=== PATIENT | male | born 1955 | race Caucasian/White ===

== ENCOUNTER 2016-11-02 20:35 | Inpatient (IN) | payer MEDICARE, MEDICAID ==
[~2016-11-02] VITALS: Ht 170.2 cm; Wt 74.4 kg
[~2016-11-02 20:35] MED LIST: ACET650T10 PO; ARIP30TA PO; ASPI-605 PO; BISA10SU8 RC; CALC-883 PO; CLON1TAB4 PO; DIVA500T7 PO; DOCU-270 PO; DOXA4TAB3 PO; FINA5TAB11 PO; FLUO40CA8 PO; LEVE250T2 PO; LEVO750T21 PO; LEVO88TA5 PO; MAGN400O6 PO; MULT1TAB11 PO; NA P133E RC; OXYB5TAB PO; PANT40TA4 PO; QUET200T PO; QUET400T PO
[2016-11-02] MEDS ORDERED: ONDANSETRON HCL/PF 4 MG/2 ML VIAL ONE (20:59)
[2016-11-02] MEDS ORDERED: CEFTRIAXONE 1GM BAG (ER ONLY) 50 ML IV ONE ×2 (20:59→21:00)
[2016-11-02] MEDS ORDERED: ONDANSETRON HCL/PF 4 MG/2 ML VIAL IVP ONE (21:00)
[2016-11-02] MEDS ORDERED: IV SET PRIMARY 1 EA INFUS.SET MC ONE (21:00)
[2016-11-02] MEDS ORDERED: IV NS 0.9% 1,000 ML BAG IV ONE (21:00)
[2016-11-02] MEDS ORDERED: IV NS 0.9% 1,000 ML ONE (21:00)
--- NOTE | 2016-11-02 21:00 | NUR ---
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 pt is alert x 2, c/o cough congestion x 3 day . pt states he was at his urgent care earlier today, dc with uti care instrucitons and rx for rocephin. pt states he was unable to fill the scrip due to insurance reasons. pt gowned, palced on threat monitoring analyst, skin warm and dry, rr even and unlabored. pt is tachycardic in the 110's, hypxic. admin 4lpm nc. awaiting orders from [facility], will continue to monitor
--- NOTE | 2016-11-02 21:01 | NUR ---
RAC #[id number] IV ACCESS. BLOOD SAMPLE COLLECTED SENT TO LAB
--- NOTE | 2016-11-02 21:17 | NUR ---
medicated pt as ordered
[2016-11-02 21:31] LABS: BASOPHILS # (AUTO) 0.1 /CMM (0.0-0.2); BASOPHILS % (AUTO) 1.3 % (0.0-2.0); EOSINOPHILS # (AUTO) 0.1 /CMM (0.0-0.7); EOSINOPHILS % (AUTO) 1.4 % (0.0-6.0); HEMATOCRIT 43 % (39-51); HEMOGLOBIN 14.1 g/dL (13.5-17.5); LYMPHOCYTES # (AUTO) 1.5 /CMM (0.8-4.8); LYMPHOCYTES % (AUTO) 15.1 % (20.0-44.0); MEAN CORPUSCULAR HEMOGLOBIN 30 PG (26.0-33.0); MEAN CORPUSCULAR HGB CONC 33 g/dl (31.0-36.0); MEAN CORPUSCULAR VOLUME 93 fL (80-96); MONOCYTES # (AUTO) 1.6 /CMM (0.1-1.30); MONOCYTES % (AUTO) 15.8 % (2.0-12.0); NEUTROPHILS # (AUTO) 6.7 /CMM (1.8-8.9); NEUTROPHILS % (AUTO) 66.4 % (43.0-81.0); PLATELET COUNT (AUTO) 79 /CMM (150-450); RDW COEFFICIENT OF VARIATION 15.9 (11.5-15.0); RED BLOOD CELL COUNT(AUTO) 4.68 MIL/uL (4.5-6.0)
[2016-11-02] MEDS ORDERED: SECONDARY IV SET 1 EA INFUS.SET MC ONE (21:41)
[2016-11-02 21:45] LABS: INR 1.14 (0.87-1.13)
[2016-11-02 21:47] LABS: CALCIUM, SERUM 8.6 mg/dL (8.5-10.1); CARBON DIOXIDE 30 mmol/L (21-32); CHLORIDE 108 mmol/L (98-107); CREATININE 1.4 mg/dL (0.6-1.3); GLUCOSE 103 mg/dL (74-106); SODIUM SERUM 142 mmol/L (136-145); UREA NITROGEN, BLOOD 30 mg/dL (7-18)
[2016-11-02 21:48] LABS: TROPONIN I < 0.017 ng/mL (0.00-0.056)
[2016-11-02 21:59] LABS: ALANINE AMINOTRANSFERASE 8 U/L (12-78); ALBUMIN 2.4 g/dL (3.4-5.0); ALKALINE PHOSPHATASE 87 U/L (46-116); ASPARTATE AMINOTRANSFERASE 23 U/L (15-37); B-TYPE NATRIURETIC PEPTIDE 45 PG/ML (0-125); BILIRUBIN,DIRECT 0.1 mg/dL (0.0-0.2); BILIRUBIN,TOTAL 0.2 mg/dL (0.2-1.0); TOTAL PROTEIN, SERUM 6.5 g/dL (6.4-8.2)
[2016-11-02] MEDS ORDERED: AZITHROMYCIN 500 MG in IV D5W 250 ML IV ONE (22:00)
[2016-11-02] MEDS ORDERED: FUROSEMIDE 40 MG/4 ML VIAL IV ONE (22:00)
[2016-11-02] MEDS ORDERED: IV SET PRIMARY PUMP SET 1 EA INFUS.SET MC ONE (22:04)
[2016-11-02] MEDS ORDERED: AZITHROMYCIN 500 MG VIAL ONE (22:04)
[2016-11-02] MEDS ORDERED: IV D5W 250 ML IV ONE ×2 (22:04→22:06)
[2016-11-02] MEDS ORDERED: FUROSEMIDE 20 MG/2 ML VIAL ONE (22:04)
[2016-11-02] MEDS ORDERED: FUROSEMIDE 40 MG/4 ML VIAL ONE (22:04)
[2016-11-02 22:11] LABS: APPEARANCE,URINE SL CLOUDY (CLEAR); BILIRUBIN,URINE NEGATIVE (NEGATIVE); BLOOD, URINE TRACE-INTA Ery/uL (NEGATIVE); COLOR,URINE YELLOW (YELLOW); KETONES,URINE NEGATIVE (NEGATIVE); LEUKOCYTE ESTERASE ,URINE 2+ (NEGATIVE); NITRITE, URINE POSITIVE (NEGATIVE); PH,URINE 5.5 (5.0-8.0); PROTEIN,URINE NEGATIVE (NEGATIVE); UGLUCOSE NEGATIVE (NEGATIVE); UROBILINOGEN,URINE 0.2 EU/dL (0.2)
[2016-11-02] MEDS ORDERED: Z GUARD REMEDY 2 OZ OINT TP PRN (22:30)
[2016-11-02] MEDS ORDERED: MAG HYDROX/AL HYDROX/SIMETH 30 ML UDC PO PRN (22:30)
[2016-11-02] MEDS ORDERED: BISACODYL SUPP (10 MG) 10 MG/SUPP.RECT SUPP.RECT RC PRN (22:30)
[2016-11-02] MEDS ORDERED: MAGNESIUM HYDROXIDE 30 ML UDC PO PRN (22:30)
[2016-11-02] MEDS ORDERED: LEVOFLOXACIN 500 MG /D5W 100ML 500 MG in PREMIX 1 EA IV SCH (22:30)
[2016-11-02] MEDS ORDERED: HYDROCODONE/APAP 5/325MG 1 EACH TABLET PO PRN (22:30)
[2016-11-02] MEDS ORDERED: ONDANSETRON HCL/PF 4 MG/2 ML VIAL IVP PRN (22:30)
[2016-11-02] MEDS ORDERED: ACETAMINOPHEN 325 MG TABLET PO PRN (22:30)
[2016-11-02] MEDS ORDERED: ZOLPIDEM TARTRATE 5 MG TABLET PO PRN (22:30)
--- NOTE | 2016-11-02 22:30 | NUR ---
tele/rn opening notes received patient new admitted arrived on a gurney from ER with caregiver. with dx of pneumonia. came to hospital due to newly dx uti from urgent care.w/ nv/. with htn hld, autism, bph. alert x2. w/ mild distress. tele at st 110. noted rednedd on buttocks . will endorse to am rn
[2016-11-02 22:32] LABS: BACTERIA,URINE 1+ /HPF (None Seen); SQUAMOUS EPITHELIAL CELL,UR Rare /HPF (None Seen); WBC,URINE 21-50 /HPF (0-3)
[2016-11-02] MEDS ORDERED: DOXAZOSIN MESYLATE (4 MG) 4 MG TABLET ONE (23:29)
[2016-11-02] MEDS ORDERED: DOCUSATE SODIUM 100 MG CAPSULE PO ONE (23:30)
[2016-11-02] MEDS ORDERED: OXYBUTYNIN CHLORIDE 5 MG TABLET ONE (23:31)
[2016-11-02] MEDS ORDERED: DIVALPROEX SODIUM 500 MG TABLET.DR PO ONE (23:31)
[2016-11-02] MEDS ORDERED: LEVETIRACETAM (250 MG) 250 MG TABLET PO ONE (23:32)
[2016-11-02] MEDS: DOCUSATE SODIUM 100 MG CAPSULE PO SCH (23:40)
[2016-11-02] MEDS: DIVALPROEX SODIUM 500 MG TABLET.DR PO SCH (23:41)
[2016-11-02] MEDS: DOXAZOSIN MESYLATE (4 MG) 4 MG TABLET PO SCH (23:41)
[2016-11-02] MEDS ORDERED: LEVOFLOXACIN 500 MG /D5W 100ML 100 ML IV ONE (23:42)
[2016-11-02] MEDS: LEVETIRACETAM (250 MG) 250 MG TABLET PO SCH (23:42)
[2016-11-02 23:43] VITALS: BP 121/96
[2016-11-03] VITALS (8 sets, daily range): BP systolic 91–108; BP diastolic 67–74
[2016-11-03] MEDS ORDERED: IV SET PRIMARY PUMP SET 1 EA INFUS.SET MC ONE (00:29)
[2016-11-03] MEDS ORDERED: SECONDARY IV SET 1 EA INFUS.SET MC ONE ×2 (00:32→12:11)
[2016-11-03] MEDS ORDERED: IV NS 0.9% 1,000 ML ONE (00:32)
[2016-11-03] MEDS: IV NS 0.9% 1,000 ML IV PRN ×2 (00:38→18:26)
[2016-11-03 07:31] LABS: BASOPHILS % (AUTO) 0.3 % (0.0-2.0); EOSINOPHILS # (AUTO) 0.2 /CMM (0.0-0.7); EOSINOPHILS % (AUTO) 1.8 % (0.0-6.0); HEMATOCRIT 40 % (39-51); HEMOGLOBIN 13.5 g/dL (13.5-17.5); LYMPHOCYTES # (AUTO) 2.2 /CMM (0.8-4.8); MEAN CORPUSCULAR HEMOGLOBIN 31 PG (26.0-33.0); MEAN CORPUSCULAR HGB CONC 34 g/dl (31.0-36.0); MEAN CORPUSCULAR VOLUME 91 fL (80-96); MONOCYTES # (AUTO) 1.5 /CMM (0.1-1.30); NEUTROPHILS # (AUTO) 6.1 /CMM (1.8-8.9); NEUTROPHILS % (AUTO) 60.9 % (43.0-81.0); PLATELET COUNT (AUTO) 99 /CMM (150-450); RDW COEFFICIENT OF VARIATION 16.4 (11.5-15.0); RED BLOOD CELL COUNT(AUTO) 4.39 MIL/uL (4.5-6.0)
[2016-11-03 07:52] LABS: CALCIUM, SERUM 8.8 mg/dL (8.5-10.1); CREATININE 1.3 mg/dL (0.6-1.3); MAGNESIUM 1.7 mg/dL (1.8-2.4); PHOSPHORUS 4.1 mg/dL (2.5-4.9); POTASSIUM 4.2 mmol/L (3.5-5.1)
--- NOTE | 2016-11-03 08:00 | NUR ---
tele health care coach: initial assessment received pt in bed awake, a/ox2, speech garble due to autism. pt able to make simple needs known. private caregiver at bedside. reality orientation provided prn. no c/o pain or any discomfort. instructed to call for assistance. will continue to monitor.
[2016-11-03] MEDS: FLUOXETINE HCL 20 MG CAPSULE PO SCH (09:13)
[2016-11-03] MEDS: LEVETIRACETAM (250 MG) 250 MG TABLET PO SCH ×2 (09:13→17:07)
[2016-11-03] MEDS: LEVOTHYROXINE SODIUM 88 MCG TABLET PO SCH (09:14)
[2016-11-03] MEDS: ARIPIPRAZOLE 5 MG TABLET PO SCH (09:14)
[2016-11-03] MEDS: DOCUSATE SODIUM 100 MG CAPSULE PO SCH ×2 (09:14→17:08)
[2016-11-03] MEDS: clonazePAM 1 MG TABLET PO SCH ×3 (09:14→17:08)
[2016-11-03] MEDS: ASPIRIN EC 81 MG TABLET.DR PO SCH (09:14)
[2016-11-03] MEDS: OXYBUTYNIN CHLORIDE ER 5 MG TAB PO SCH (09:15)
[2016-11-03] MEDS: PANTOPRAZOLE 40 MG TABLET.DR PO SCH (09:15)
[2016-11-03] MEDS: DIVALPROEX SODIUM 500 MG TABLET.DR PO SCH ×3 (09:17→17:08)
--- NOTE | 2016-11-03 10:00 | NUR ---
tele sap ppm consultant: notes resting comfortable in bed with no distress noted. will continue to monitor.
[2016-11-03 10:29] LABS: BAND % (MANUAL) 3 % (0.0-5.0); EOSINOPHILS % (MANUAL) 3 % (0-4); LYMPHOCYTES % (MANUAL) 25 % (16-48); MONOCYTES % (MANUAL) 14 % (0-11.0); NEUTROPHILS % (MANUAL) 55 (42-76)
[2016-11-03] MEDS: QUETIAPINE FUMARATE 100 MG TABLET PO SCH ×3 (11:07→21:11)
--- NOTE | 2016-11-03 12:00 | NUR ---
tele chainsaw mechanic: notes lunch served. hob elevated. pt has good appetite. needs attended. will continue to monitor.
[2016-11-03] MEDS: Magnesium 1GM/D5W 100ML PREMIX 100 ML IV SCH ×3 (13:00→13:59)
--- NOTE | 2016-11-03 14:00 | NUR ---
tele general maintenance engineer: md visit seen and examined by dr. sheppard.
--- NOTE | 2016-11-03 17:15 | NUR ---
tele store keeper: notes dinner served. hob elevated. private caregiver assisting with meal. instructed to call for assistance. will monitor.
--- NOTE | 2016-11-03 18:37 | NUR ---
tele software development leader: notes in bed sounds asleep. caregiver remains at bedside. needs attended. tele sr=89. will continue to monitor.
--- NOTE | 2016-11-03 19:30 | NUR ---
TELERN OPENS EYES OCCASSIONALLY, CAREGIVER AT BEDSIDE. COUGHS PRODUCTIVELY AT TIMES, NO RESP DISTRESS. 02 AT 2 LITERS VIA NC MAINTAINED. CAREGIVER SUGGESTING PUREE DIET, STATED PATIENT POCKETING SOLID FOOD. WILL FOLLW UP IN AM.
[2016-11-03] MEDS: DOXAZOSIN MESYLATE (4 MG) 4 MG TABLET PO SCH (21:09)
--- NOTE | 2016-11-03 21:10 | NUR ---
LESTER AGUILAR HELD BP 99/67. OTHER DUE MEDS ADMIISTERED CRUSHED GIVEN WITH APPLE SAUCE. ASPIRATION PRECAUTIONS OBSERVED. INCONTINENT, KEPT DRY CLEAN AND COMFORTABLE.
[2016-11-03] MEDS: FINASTERIDE (5 MG) 5 MG TABLET PO SCH (21:11)
[2016-11-04] VITALS: BP 104/74
--- NOTE | 2016-11-04 00:05 | NUR ---
TELERN SLEPT GOOD, APPEARS COMFORTABLE.
[2016-11-04 04:00] VITALS: BP 111/76
--- NOTE | 2016-11-04 04:15 | NUR ---
TELERN AM CARE STARTED, SCREAMS DURING CARE. LARGE URINE OUTPUT, DIAPERED. PRESENT IVF INFUSING WELL.
[2016-11-04] MEDS: IV NS 0.9% 1,000 ML IV PRN (05:26)
--- NOTE | 2016-11-04 06:53 | NUR ---
TELERN CAREGIVER AT BEDSIDE, YELLING AT TIME, WANTED TO LEAVE. REMAINS CONFUSED, PRESENT IVF INFUSING WELL.
[2016-11-04 07:00] VITALS: BP 108/67
[2016-11-04 07:34] LABS: CALCIUM, SERUM 8.9 mg/dL (8.5-10.1); CREATININE 1.1 mg/dL (0.6-1.3); MAGNESIUM 1.9 mg/dL (1.8-2.4); POTASSIUM 4.1 mmol/L (3.5-5.1)
--- NOTE | 2016-11-04 08:00 | NUR ---
tele window repairer: initial assessment received pt in bed awake, a/ox2, speech garble. pt able to make simple needs known. private caregiver at bedside. reality orientation provided prn. no c/o pain or any discomfort. instructed to call for assistance. tele st= 110. will continue to monitor.
[2016-11-04] MEDS: ARIPIPRAZOLE 5 MG TABLET PO SCH (08:56)
[2016-11-04] MEDS: DIVALPROEX SODIUM 500 MG TABLET.DR PO SCH ×3 (08:56→17:29)
[2016-11-04] MEDS: FLUOXETINE HCL 20 MG CAPSULE PO SCH (08:56)
[2016-11-04] MEDS: LEVETIRACETAM (250 MG) 250 MG TABLET PO SCH ×2 (08:56→17:29)
[2016-11-04] MEDS: ASPIRIN EC 81 MG TABLET.DR PO SCH (08:56)
[2016-11-04] MEDS: PANTOPRAZOLE 40 MG TABLET.DR PO SCH (08:56)
[2016-11-04] MEDS: clonazePAM 1 MG TABLET PO SCH ×3 (08:56→17:29)
[2016-11-04] MEDS: DOCUSATE SODIUM 100 MG CAPSULE PO SCH ×2 (08:56→17:28)
[2016-11-04] MEDS: LEVOTHYROXINE SODIUM 88 MCG TABLET PO SCH (08:57)
[2016-11-04] MEDS: OXYBUTYNIN CHLORIDE ER 5 MG TAB PO SCH (08:57)
[2016-11-04] MEDS: QUETIAPINE FUMARATE 100 MG TABLET PO SCH ×3 (08:58→22:03)
--- NOTE | 2016-11-04 11:10 | NUR ---
m/s assistant associate professor: md visit seen and examined by carina (acnp) at this time and informed him that pt doesn't have any antibiotic orders. ancp will review his chart as stated.
[2016-11-04] MEDS ORDERED: CEFTRIAXONE 1 G VIAL IM SCH (12:30)
[2016-11-04] MEDS ORDERED: CEFTRIAXONE 1 G VIAL IV SCH (12:30)
[2016-11-04] MEDS: IV 1/2NS 1000 ML 1,000 ML IV PRN (12:47)
[2016-11-04] MEDS: CEFTRIAXONE 1 G in IV D5W 50 ML IV SCH (13:51)
[2016-11-04] MEDS ORDERED: SECONDARY IV SET 1 EA INFUS.SET MC ONE (14:21)
--- NOTE | 2016-11-04 14:25 | NUR ---
m/s plastic molding operator: notes rocephin 1gm ivpb completed without a/r noted. caregiver remains at bedside. will continue to monitor.
[2016-11-04] MEDS: AZITHROMYCIN 500 MG in IV D5W 250 ML IV SCH (14:27)
[2016-11-04 15:58] VITALS: BP 115/82
--- NOTE | 2016-11-04 18:20 | NUR ---
m/s board certified behavioral analyst: notes resting comfortable in bed with caregiver at bedside. needs attended. no acute distress noted. call light within reach. ivf of 1/2 ns at 75ml/hr infusing well. no s/s of infiltration. will continue to monitor.
--- NOTE | 2016-11-04 19:30 | NUR ---
MS/RN NOTES PT RESTING IN BED, OPENS EYES. CAREGIVER AT BEDSIDE. ON 2LPM O2 VIA NC, BREATHING EVEN AND UNLABORED, COUGH NOTED. NO S/S OF DISTRESS. IV TO RFA RUNNING IVF ORDERED. NO S/S OF INFILTRATION NOTED. BED IN LOW/LOCKED POSITION WITH CALL LIGHT IN REACH, BED RAILS UPX2 AND BED ALARM ON. WILL CONTINUE TO MONITOR
[2016-11-04 20:00] VITALS: BP 121/78
[2016-11-04] MEDS: DOXAZOSIN MESYLATE (4 MG) 4 MG TABLET PO SCH (22:03)
[2016-11-04] MEDS: FINASTERIDE (5 MG) 5 MG TABLET PO SCH (22:03)
[2016-11-05] MEDS: IV 1/2NS 1000 ML 1,000 ML IV PRN ×2 (04:20→21:01)
--- NOTE | 2016-11-05 07:15 | NUR ---
RN OPEN NOTES RECEIVED REPORT FROM MANAGER SUBWAY NURSE. PATIENT IS IN BED WITH HIS EYES CLOSED. AROUSE TO NAME AND TOUCH. CHENILLE MACHINE OPERATOR AT BEDSIDE. NO SIGNS AND SYMPTOMS OF DISTRESS. BED IN LOW POSITION, LOCKED AND TWO SIDE RAILS ARE UP. WILL CONTINUE TO MONITOR AND ASSESS PATIENT'S CONDITION THROUGHOUT MY SHIFT
[2016-11-05 07:18] LABS: BASOPHILS % (AUTO) 0.3 % (0.0-2.0); EOSINOPHILS # (AUTO) 0.2 /CMM (0.0-0.7); EOSINOPHILS % (AUTO) 3.2 % (0.0-6.0); HEMATOCRIT 39 % (39-51); LYMPHOCYTES % (AUTO) 27.1 % (20.0-44.0); MEAN CORPUSCULAR HEMOGLOBIN 30 PG (26.0-33.0); MEAN CORPUSCULAR HGB CONC 33 g/dl (31.0-36.0); MEAN CORPUSCULAR VOLUME 92 fL (80-96); MONOCYTES % (AUTO) 14.1 % (2.0-12.0); NEUTROPHILS % (AUTO) 55.3 % (43.0-81.0); PLATELET COUNT (AUTO) 79 /CMM (150-450); RDW COEFFICIENT OF VARIATION 16.5 (11.5-15.0); RED BLOOD CELL COUNT(AUTO) 4.28 MIL/uL (4.5-6.0); WHITE BLOOD COUNT (AUTO) 7.2 K/uL (4.3-11.0)
--- NOTE | 2016-11-05 07:23 | NUR ---
MS/RN NOTES PT ASLEEP, AROUSABLE. ON 3LPM 02 VIA NC, BREATHING EVEN AND UNLABORED. NO S/S OF DISTRESS NOTED. CAREGIVER AT BEDSIDE. IV TO RFA PATENT AND INTACT RUNNING IVF ORDERED. ALL NEEDS MET AND ATTENDED. MADE PT COMFORTABLE THROUGHOUT SHIFT. TURNED AND REPOSITIONED Q2H, EXTREMITIES OFFLOADED. BED IN LOW/LOCKED POSITION WITH CALL LIGHT IN REACH. BED RAILS UPX2. ENDORSED TO AM SHIFT BUDDY.
[2016-11-05 07:42] LABS: CALCIUM, SERUM 8.9 mg/dL (8.5-10.1); MAGNESIUM 1.6 mg/dL (1.8-2.4); POTASSIUM 4.1 mmol/L (3.5-5.1)
[2016-11-05 08:00] VITALS: BP 117/87
[2016-11-05 08:15] LABS: EOSINOPHILS % (MANUAL) 1 % (0-4); LYMPHOCYTES % (MANUAL) 21 % (16-48); MONOCYTES % (MANUAL) 6 % (0-11.0); NEUTROPHILS % (MANUAL) 72 (42-76)
[2016-11-05] MEDS: OXYBUTYNIN CHLORIDE ER 5 MG TAB PO SCH (08:46)
[2016-11-05] MEDS: ARIPIPRAZOLE 5 MG TABLET PO SCH (08:46)
[2016-11-05] MEDS: DOCUSATE SODIUM 100 MG CAPSULE PO SCH ×2 (08:47→17:36)
[2016-11-05] MEDS: ASPIRIN EC 81 MG TABLET.DR PO SCH (08:48)
[2016-11-05] MEDS: FLUOXETINE HCL 20 MG CAPSULE PO SCH (08:48)
[2016-11-05] MEDS: LEVETIRACETAM (250 MG) 250 MG TABLET PO SCH ×2 (08:48→17:36)
[2016-11-05] MEDS: clonazePAM 1 MG TABLET PO SCH ×3 (08:48→17:36)
[2016-11-05] MEDS: QUETIAPINE FUMARATE 100 MG TABLET PO SCH ×3 (08:49→21:01)
[2016-11-05] MEDS: LEVOTHYROXINE SODIUM 88 MCG TABLET PO SCH (08:49)
[2016-11-05] MEDS: PANTOPRAZOLE 40 MG TABLET.DR PO SCH (08:49)
[2016-11-05] MEDS: DIVALPROEX SODIUM 500 MG TABLET.DR PO SCH (08:50)
[2016-11-05] MEDS: VALPROIC ACID 250 MG/5 ML UDC GT SCH ×3 (09:54→17:36)
[2016-11-05] MEDS ORDERED: SECONDARY IV SET 1 EA INFUS.SET MC ONE (12:04)
[2016-11-05] MEDS: Magnesium 1GM/D5W 100ML PREMIX 100 ML IV SCH ×2 (12:23→13:31)
[2016-11-05] MEDS: AZITHROMYCIN 500 MG in IV D5W 250 ML IV SCH (14:28)
[2016-11-05] MEDS: CEFTRIAXONE 1 G in IV D5W 50 ML IV SCH (15:36)
[2016-11-05 16:00] VITALS: BP 108/74
--- NOTE | 2016-11-05 18:45 | NUR ---
RN CLOSING NOTES PATIENT IS IN BED. ALERT AND ORIENTED TO NAME ONLY. PIPE MAKER AT BEDSIDE. NO SIGNS AND SYMPTOMS OF DISTRESS. BED IN LOW POSITION, LOCKED AND TWO SIDE RAILS ARE UP. IV SITE IS INTACT AND PATENT, CURRENTLY RUNNING 0.45% NA AT 75 ML/HR. ALL NEEDS ANTICIPATED. PATIENT KEPT CLEAN AND DRY. WILL ENDORSE TO TOOLING INSPECTOR NURSE
--- NOTE | 2016-11-05 19:45 | NUR ---
MS RN OPEN NOTES PATIENT IS IN BED WITH HIS EYES CLOSED. AROUSE TO NAME AND TOUCH. POLICEMAN AT BEDSIDE. NO SIGNS AND SYMPTOMS OF DISTRESS, NO SOB. ON 3L NC. BED IN LOW POSITION, LOCKED AND TWO SIDE RAILS ARE UP. WILL CONTINUE TO MONITOR PT
[2016-11-05 20:00] VITALS: BP 96/70
[2016-11-05] MEDS ORDERED: IV SET PRIMARY PUMP SET 1 EA INFUS.SET MC ONE (20:43)
[2016-11-05] MEDS: FINASTERIDE (5 MG) 5 MG TABLET PO SCH (21:01)
[2016-11-05] MEDS: DOXAZOSIN MESYLATE (4 MG) 4 MG TABLET PO SCH (21:01)
--- NOTE | 2016-11-06 06:27 | NUR ---
NUCLEAR OFFICER CLOSING NOTES PATIENT IS IN BED. ALERT AND ORIENTED X1-2, COMMUNICATES BETTER WITH YES OR NO QUESTIONS. INTERACTIVE MEDIA DESIGNER AT BEDSIDE THICKENER FOR LIQUIDS WAS GIVEN TO USE WITH PT. NO SIGNS AND SYMPTOMS OF DISTRESS. BED IN LOW POSITION, LOCKED AND TWO SIDE RAILS ARE UP. IV SITE IS INTACT AND PATENT, CURRENTLY RUNNING 0.45% NA AT 75 ML/HR. ALL NEEDS ANTICIPATED. PATIENT KEPT CLEAN AND DRY. WILL ENDORSE TO DAY SHIFT.
[2016-11-06 06:46] LABS: BASOPHILS % (AUTO) 0.3 % (0.0-2.0); EOSINOPHILS # (AUTO) 0.2 /CMM (0.0-0.7); EOSINOPHILS % (AUTO) 1.9 % (0.0-6.0); HEMATOCRIT 41 % (39-51); HEMOGLOBIN 13.7 g/dL (13.5-17.5); LYMPHOCYTES # (AUTO) 1.8 /CMM (0.8-4.8); LYMPHOCYTES % (AUTO) 20.2 % (20.0-44.0); MEAN CORPUSCULAR HEMOGLOBIN 31 PG (26.0-33.0); MEAN CORPUSCULAR HGB CONC 33 g/dl (31.0-36.0); MEAN CORPUSCULAR VOLUME 92 fL (80-96); MONOCYTES # (AUTO) 1.4 /CMM (0.1-1.30); NEUTROPHILS # (AUTO) 5.4 /CMM (1.8-8.9); NEUTROPHILS % (AUTO) 61.6 % (43.0-81.0); PLATELET COUNT (AUTO) 88 /CMM (150-450); RDW COEFFICIENT OF VARIATION 16.5 (11.5-15.0); WHITE BLOOD COUNT (AUTO) 8.8 K/uL (4.3-11.0)
[2016-11-06 06:58] LABS: CALCIUM, SERUM 8.8 mg/dL (8.5-10.1); CREATININE 1.1 mg/dL (0.6-1.3); MAGNESIUM 1.7 mg/dL (1.8-2.4); POTASSIUM 4.3 mmol/L (3.5-5.1)
--- NOTE | 2016-11-06 07:49 | NUR ---
RN MS NOTES RECEIVED PATIENT IN BED, WIT SITTER AT BED SIDE. NO APPARENT DISTRESS NOTED, NO FACIAL GRIMACING NOTED. IV LINE ON RFA PATENT INFUSING 1/2NS AT 75ML/HR. ALL NEEDS MET, KEPT CLEAN AND DRY, CALL LIGHT WITHIN REACH.
[2016-11-06 08:00] VITALS: BP 105/79
[2016-11-06 08:06] LABS: BAND % (MANUAL) 3 % (0.0-5.0); EOSINOPHILS % (MANUAL) 2 % (0-4); LYMPHOCYTES % (MANUAL) 21 % (16-48); MONOCYTES % (MANUAL) 9 % (0-11.0); NEUTROPHILS % (MANUAL) 65 (42-76)
[2016-11-06] MEDS: ASPIRIN EC 81 MG TABLET.DR PO SCH (08:55)
[2016-11-06] MEDS: DOCUSATE SODIUM 100 MG CAPSULE PO SCH ×2 (08:55→16:23)
[2016-11-06] MEDS: LEVETIRACETAM (250 MG) 250 MG TABLET PO SCH ×2 (08:56→16:23)
[2016-11-06] MEDS: QUETIAPINE FUMARATE 100 MG TABLET PO SCH (08:56)
[2016-11-06] MEDS: OXYBUTYNIN CHLORIDE ER 5 MG TAB PO SCH (08:57)
[2016-11-06] MEDS: ARIPIPRAZOLE 5 MG TABLET PO SCH (08:57)
[2016-11-06] MEDS: FLUOXETINE HCL 20 MG CAPSULE PO SCH (08:57)
[2016-11-06] MEDS: PANTOPRAZOLE 40 MG TABLET.DR PO SCH (08:57)
[2016-11-06] MEDS: LEVOTHYROXINE SODIUM 88 MCG TABLET PO SCH (08:57)
[2016-11-06] MEDS: clonazePAM 1 MG TABLET PO SCH ×2 (08:59→12:41)
[2016-11-06] MEDS: VALPROIC ACID 250 MG/5 ML UDC GT SCH ×3 (09:15→16:23)
[2016-11-06] MEDS ORDERED: FEE PK DOSING 1 MIN EA MC ONE (09:56)
[2016-11-06] MEDS: IV 1/2NS 1000 ML 1,000 ML IV PRN (10:40)
[2016-11-06] MEDS ORDERED: SECONDARY IV SET 1 EA INFUS.SET MC ONE ×2 (11:20→12:42)
[2016-11-06] MEDS: Magnesium 1GM/D5W 100ML PREMIX 100 ML IV SCH ×2 (11:26→13:56)
[2016-11-06] MEDS: VANCOMYCIN 0.75 GM in IV D5W 250 ML IV SCH ×2 (12:44→19:43)
[2016-11-06] MEDS ORDERED: clonazePAM 1 MG TABLET PO PRN (13:00)
--- NOTE | 2016-11-06 13:00 | NUR ---
RN MS NOTES CALLED JORDY PART TIME TO INFORM HIM OF DESATURATION AND LETHARGY. RECEIVED NEW TELEPHONE ORDERS, NOTED AND CARRIED OUT.
--- NOTE | 2016-11-06 13:29 | NUR ---
RN MS NOTES 1300 MEDICATIONS HELD DUE TO PATIENT BEING LETHARGIC.
[2016-11-06 13:41] LABS: ABG BASE EXCESS 5.6 mmol/L; ABG OXYGEN SATURATION 98.1 % (92.0-98.5); ABG PCO2 47.1 mmHg (35.0-45.0); ABG PH 7.434 (7.350-7.450); ABG PO2 152.5 mmHg (75.0-100.0); AaDO2 368.5 mmHg; COHb 0.5 % (0.5-1.5); MetHb 0.2 % (0.0-1.5); O2Hb 97.4 % (94.0-97.0); SITE, ABG Right Radial; VENT MODE, BG 15 LPM VIA NRB
[2016-11-06] MEDS: CEFTRIAXONE 1 G in IV D5W 50 ML IV SCH (15:24)
[2016-11-06 16:00] VITALS: BP 102/75
--- NOTE | 2016-11-06 19:20 | NUR ---
RN MS CLOSING NOTES PATIENT IN BED, IN NO APPARENT DISTRESS, NO FACIAL GRIMACING NOTED. IV LINE ON RFA DISCONTINUE DUE TO INFILTRATION, SWELLING NOTED ON RIGHT ARM. NEW IV LINE STARTED ON LEFT WRIST WITH GOOD BLOOD RETURN. ON 5L O2 VIA MASK SATURATING AT 98%. ALL DUE MEDS GIVEN, ALL NEEDS MET, KEPT CLEAN AND DRY. WILL ENDORSE CARE TO PM SHIFT.
--- NOTE | 2016-11-06 19:40 | NUR ---
MS/ANALYSIS LEAD; RECEIVED PT IN BED SLEEPING / AROUSABLE. WITH O2 5L VIA MASH ON. HL ON LWA IVF RESUMED BY THE RN AND HE HANGED VANCOMYCIN AT THIS TIME. PT SAT 95 % on o2 5L VIA MASH, HR 92. BED ON LOWER POSITION AND LOCKED FOR SAFETY. SIDE RAILS ARE UP FOR SAFETY. CONTINUE TO MONITOR. CALL LIGHT WITHIN REACH.
[2016-11-06 20:00] VITALS: BP 102/75
--- NOTE | 2016-11-06 20:20 | NUR ---
MS/LIQUEFIED PETROLEUM GASFITTER; PT RE CHECKED WITH FEMALE INSPECTOR BRAKE LINING AT THIS TIME. .
[2016-11-06] MEDS: DOXAZOSIN MESYLATE (4 MG) 4 MG TABLET PO SCH (22:00)
[2016-11-06] MEDS: FINASTERIDE (5 MG) 5 MG TABLET PO SCH (22:08)
--- NOTE | 2016-11-07 02:00 | NUR ---
MS/FACILITIES ADMINISTRATOR; SLEEPING. COUGHING STILL NOTED.
[2016-11-07] MEDS: VANCOMYCIN 0.75 GM in IV D5W 250 ML IV SCH ×3 (02:44→20:34)
--- NOTE | 2016-11-07 06:24 | NUR ---
MS/TRAY DELIVERY AIDE; SLEPT FAIRLY. COUGHING STILL NOTED. REMAINED O2 5L VIA MASK. HAS BEEN SATURATING FINE. CONTINUE TO MONITOR. IVF ON PROGRESS. INCONTINENT OF URINE. AM CARE DONE BY THE BUNCH MAKER HAND. HAS BEEN TURNED AND REPOSITIONED TO SIDES WITH PILLOWS TO HIS BACK, BOTH LOWER LEGS . RT ARM WITH SWELLING AND ELEVATED WITH PILLOW ALSO. CONTINUE TO MONITOR. WILL ENDORSE TO THE DAY SHIFT NURSE.
--- NOTE | 2016-11-07 06:45 | NUR ---
MS/EMPLOYEE SERVICE OFFICER; WT. 164.9 BY BED SCALE.
[2016-11-07 07:23] LABS: CALCIUM, SERUM 8.9 mg/dL (8.5-10.1); CREATININE 0.9 mg/dL (0.6-1.3); MAGNESIUM 1.6 mg/dL (1.8-2.4)
--- NOTE | 2016-11-07 07:26 | NUR ---
RN MS NOTES RECEIVED PATIENT IN BED, IN NO APPARENT DISTRESS, NO SOB NOTED, NO FACIAL GRIMACING NOTED. ON 5 L O2 VIA MASK SATURATING AT 98%. IV LINE ON LEFT WRIST PATENT, INFUSING 1/2 NS AT 75ML/HR. ALL NEEDS MET, KEPT CLEAN AND DRY.
[2016-11-07 08:00] VITALS: BP 109/75
[2016-11-07] MEDS: ARIPIPRAZOLE 5 MG TABLET PO SCH (09:12)
[2016-11-07] MEDS: LEVOTHYROXINE SODIUM 88 MCG TABLET PO SCH (09:12)
[2016-11-07] MEDS: PANTOPRAZOLE 40 MG TABLET.DR PO SCH (09:12)
[2016-11-07] MEDS: VALPROIC ACID 250 MG/5 ML UDC GT SCH ×3 (09:12→16:03)
[2016-11-07] MEDS: OXYBUTYNIN CHLORIDE ER 5 MG TAB PO SCH (09:13)
[2016-11-07] MEDS: ASPIRIN EC 81 MG TABLET.DR PO SCH (09:13)
[2016-11-07] MEDS: FLUOXETINE HCL 20 MG CAPSULE PO SCH (09:13)
[2016-11-07] MEDS: DOCUSATE SODIUM 100 MG CAPSULE PO SCH ×2 (09:13→16:03)
[2016-11-07] MEDS: LEVETIRACETAM (250 MG) 250 MG TABLET PO SCH ×2 (09:13→16:03)
--- NOTE | 2016-11-07 10:55 | NUR ---
RN MS GONZALES CALLED [facility] TO OBTAIN CONSENT FOR CT, PER CASSY SHE IS A MEETING WILL CALL BACK. ALSO CALLED KALYN BABIN, NO ANSWER, LEFT A MESSAGE.
[2016-11-07] MEDS ORDERED: SECONDARY IV SET 1 EA INFUS.SET MC ONE ×2 (11:15→15:53)
--- NOTE | 2016-11-07 11:16 | NUR ---
RN MS NOTES CONSENT FOR CTA OBTAINED FROM SISTER KALYN BABIN. WITNESSED BY 2 RNS.
[2016-11-07] MEDS: Magnesium 1GM/D5W 100ML PREMIX 100 ML IV SCH ×2 (11:20→14:41)
[2016-11-07] MEDS ORDERED: IOHEXOL-350 100 ML VIAL IV ONE (13:28)
[2016-11-07] MEDS ORDERED: IV NS 0.9% 250 ML IV ONE (13:28)
[2016-11-07] MEDS ORDERED: CT SWABBABLE VALVE TRANS SET 1 EA INFUS.SET MC ONE (13:28)
[2016-11-07] MEDS: CEFTRIAXONE 1 G in IV D5W 50 ML IV SCH (15:50)
[2016-11-07 16:06] VITALS: BP 116/77
--- NOTE | 2016-11-07 18:43 | NUR ---
RN MS CLOSING NOTES PATIENT IN BED, NO APPARENT DISTRESS NOTED, NO SOB NOTED. ALL DUE MEDS GIVEN, ALL NEEDS MET, KEPT CLEAN AND DRY. IV LINE ON LEFT HAND PATENT INFUSING 1/S NS AT 75ML/HR. IV LINE ON LEFT WRIST ALSO PATENT. WILL ENDORSE CARE TO PM SHIFT.
--- NOTE | 2016-11-07 19:00 | NUR ---
MS RN INITIAL NOTE PT RECEIVED IN BED, NO S/S OF RESPIRATORY DISTRESS OR SOB. IV SITE INTACT WITH NO S/S OF INFILTRATION NOTED. SAFE ENVIRONMENT PROVIDED FREE OF CLUTTERS .BED IN LOCKED, LOW POSITION. CALL LIGHT WITHIN EASY REACH. WILL CONTINUE TO MONITOR.
[2016-11-07 20:00] VITALS: BP 117/74
[2016-11-07] MEDS: DOXAZOSIN MESYLATE (4 MG) 4 MG TABLET PO SCH (21:45)
[2016-11-07] MEDS: FINASTERIDE (5 MG) 5 MG TABLET PO SCH (21:45)
[2016-11-08] MEDS: VANCOMYCIN 0.75 GM in IV D5W 250 ML IV SCH ×3 (02:55→18:11)
--- NOTE | 2016-11-08 06:26 | NUR ---
MS RN CLOSING NOTES PATIENT COMFORTABLY IN BED ASLEEP AND EASILY AWAKEN, ON ATB WITH NO A/R NOTED. ALERT AND VERBALLY X 1 NO S/S OF ACUTE DISTRESS. ON 3LPM VIA NC 02 SAT 95%. HEAD OF BED ELEVATED FOR BETTER LUNG EXPANSION AND GOOD CIRCULATION. RESPONDS APPROPRIATELY TO VERBAL STIMULI, RESPIRATIONS EVEN UNLABORED BREATH SOUNDS. CAREGIVER AT BEDSIDE. APICAL PULSE REGULAR; GOOD SKIN CARE PROVIDED. PATIENT IN STABLE CONDITION WITH NO SOB NO S/S OF DISTRESS NO NAUSEA AND VOMITING NO HEADACHE NO COMPLAIN OF CHEST PAIN SAFETY ENVIRONMENT PROVIDED. FREE OF CLUTTERS, SAFE HAZARD FREE ENVIRONMENT. NEEDS ATTENDED AND ANTICIPATED, NURSING CARE RENDERED, KEPT CLEAN AND DRY AND COMFORTABLE. ALL DUE MEDS WAS GIVEN. STRICTLY REPOSITIONED Q2H FOR COMFORT AND SKIN MGT. CALL LIGHT IN REACH, BED LOWERED AND LOCKED, SR X2 FOR SAFETY AND WILL ENDORSE CONTINUE PLAN OF CARE.
[2016-11-08 07:22] LABS: BASOPHILS % (AUTO) 0.4 % (0.0-2.0); EOSINOPHILS # (AUTO) 0.2 /CMM (0.0-0.7); EOSINOPHILS % (AUTO) 3.1 % (0.0-6.0); HEMATOCRIT 41 % (39-51); HEMOGLOBIN 13.6 g/dL (13.5-17.5); LYMPHOCYTES # (AUTO) 1.7 /CMM (0.8-4.8); LYMPHOCYTES % (AUTO) 24.6 % (20.0-44.0); MEAN CORPUSCULAR HEMOGLOBIN 30 PG (26.0-33.0); MEAN CORPUSCULAR HGB CONC 33 g/dl (31.0-36.0); MEAN CORPUSCULAR VOLUME 91 fL (80-96); MONOCYTES # (AUTO) 1.3 /CMM (0.1-1.30); MONOCYTES % (AUTO) 18.3 % (2.0-12.0); NEUTROPHILS # (AUTO) 3.8 /CMM (1.8-8.9); NEUTROPHILS % (AUTO) 53.6 % (43.0-81.0); PLATELET COUNT (AUTO) 110 /CMM (150-450); RDW COEFFICIENT OF VARIATION 16.1 (11.5-15.0); WHITE BLOOD COUNT (AUTO) 7.1 K/uL (4.3-11.0)
[2016-11-08 07:29] LABS: CREATININE 0.8 mg/dL (0.6-1.3); MAGNESIUM 1.9 mg/dL (1.8-2.4); POTASSIUM 4.2 mmol/L (3.5-5.1)
--- NOTE | 2016-11-08 07:30 | NUR ---
MS RN NOTES RECEIVED REPORT WITH PATIENT RESTING IN BED. PATIENT IS A/OX1. PATIENT HAS CAREGIVER AT BEDSIDE. NO S/S OF DISTRESS OR SOB NOTED. IV IS PATENT AND INTACT. CALL LIGHT IS WITHIN REACH. BED IS IN THE LOWEST, LOCKED POSITION. WILL CONTINUE TO MONITOR THROUGHOUT SHIFT
[2016-11-08 08:00] VITALS: BP 122/72
[2016-11-08 09:33] LABS: BAND % (MANUAL) 1 % (0.0-5.0); EOSINOPHILS % (MANUAL) 4 % (0-4); LYMPHOCYTES % (MANUAL) 21 % (16-48); MONOCYTES % (MANUAL) 26 % (0-11.0); NEUTROPHILS % (MANUAL) 48 (42-76)
[2016-11-08] MEDS: VALPROIC ACID 250 MG/5 ML UDC GT SCH ×3 (09:59→17:49)
[2016-11-08] MEDS: LEVOTHYROXINE SODIUM 88 MCG TABLET PO SCH (09:59)
[2016-11-08] MEDS: ARIPIPRAZOLE 5 MG TABLET PO SCH (09:59)
[2016-11-08] MEDS: DOCUSATE SODIUM 100 MG CAPSULE PO SCH ×2 (09:59→17:50)
[2016-11-08] MEDS: ASPIRIN EC 81 MG TABLET.DR PO SCH (10:00)
[2016-11-08] MEDS: OXYBUTYNIN CHLORIDE ER 5 MG TAB PO SCH (10:00)
[2016-11-08] MEDS: PANTOPRAZOLE 40 MG TABLET.DR PO SCH (10:00)
[2016-11-08] MEDS: LEVETIRACETAM (250 MG) 250 MG TABLET PO SCH ×2 (10:00→17:50)
[2016-11-08] MEDS: FLUOXETINE HCL 20 MG CAPSULE PO SCH (10:00)
[2016-11-08] MEDS ORDERED: MEROPENEM 500 MG in IV NS 0.9% 50 ML IV SCH (14:00)
[2016-11-08] MEDS: clonazePAM 1 MG TABLET PO SCH ×2 (14:00→17:49)
[2016-11-08] MEDS: MEROPENEM 1 G in IV NS 0.9% 100 ML IV SCH ×2 (16:34→21:16)
[2016-11-08] MEDS ORDERED: SECONDARY IV SET 1 EA INFUS.SET MC ONE (17:05)
[2016-11-08] MEDS: LACTOBACILLUS RHAMNOSUS GG 1 EACH CAP.SPRINK PO SCH (17:49)
--- NOTE | 2016-11-08 18:46 | NUR ---
MS RN NOTES PATIENT IS A/OX1. CAREGIVER AT BEDSIDE. NO S/S OF SOB OR ACUTE DISTRESS NOTED. PATIENT ON 3L NASAL CANNULA. IV PATENT AND INTACT. ALL PATIENT NEEDS HAVE BEEN MET THROUGHOUT DAY. CALL LIGHT WITHIN REACH. BED IS IN THE LOWEST, LOCKED POSITION. WILL ENDORSE CARE TO PM SHIFT.
--- NOTE | 2016-11-08 19:00 | NUR ---
MS RN INITIAL NOTE PT RECEIVED IN BED, WITH CAREGIVER. NO S/S OF RESPIRATORY DISTRESS OR SOB. IV SITE INTACT WITH NO S/S OF INFILTRATION NOTED. SAFE ENVIRONMENT PROVIDED FREE OF CLUTTERS .BED IN LOCKED, LOW POSITION. CALL LIGHT WITHIN EASY REACH. WILL CONTINUE TO MONITOR.
[2016-11-08 20:00] VITALS: BP 115/73
[2016-11-08] MEDS: FINASTERIDE (5 MG) 5 MG TABLET PO SCH (21:17)
[2016-11-08] MEDS: DOXAZOSIN MESYLATE (4 MG) 4 MG TABLET PO SCH (21:17)
[2016-11-09] MEDS: VANCOMYCIN 0.75 GM in IV D5W 250 ML IV SCH ×3 (03:13→18:45)
[2016-11-09] MEDS: IV 1/2NS 1000 ML 1,000 ML IV PRN (04:33)
[2016-11-09] MEDS: MEROPENEM 1 G in IV NS 0.9% 100 ML IV SCH ×3 (04:34→20:57)
--- NOTE | 2016-11-09 06:31 | NUR ---
MS RN CLOSING NOTES CAREGIVER AT BEDSIDE.PATIENT COMFORTABLY IN BED ASLEEP AND EASILY AWAKEN, HEAD OF BED ELEVATED FOR BETTER LUNG EXPANSION AND GOOD CIRCULATION. ALERT AND VERBALLY X 1 NO S/S OF ACUTE DISTRESS. ON 3LPM VIA NC 02 SAT 94%. ON ATB WITH NO A/R NOTED. RESPONDS APPROPRIATELY TO VERBAL STIMULI, RESPIRATIONS EVEN UNLABORED BREATH SOUNDS. GOOD SKIN CARE PROVIDED. PATIENT IN STABLE CONDITION WITH NO SOB NO S/S OF DISTRESS SAFE HAZARD FREE ENVIRONMENT. NEEDS ATTENDED AND ANTICIPATED, NURSING CARE RENDERED, KEPT CLEAN AND DRY AND COMFORTABLE. STRICTLY REPOSITIONED Q2H FOR COMFORT AND SKIN MGT. CALL LIGHT IN REACH, BED LOWERED AND LOCKED, SR X2 FOR SAFETY AND WILL ENDORSE CONTINUE PLAN OF CARE.
[2016-11-09 06:46] LABS: BASOPHILS % (AUTO) 0.3 % (0.0-2.0); EOSINOPHILS # (AUTO) 0.1 /CMM (0.0-0.7); EOSINOPHILS % (AUTO) 1.6 % (0.0-6.0); HEMATOCRIT 42 % (39-51); LYMPHOCYTES # (AUTO) 1.7 /CMM (0.8-4.8); LYMPHOCYTES % (AUTO) 23.4 % (20.0-44.0); MEAN CORPUSCULAR HEMOGLOBIN 31 PG (26.0-33.0); MEAN CORPUSCULAR HGB CONC 34 g/dl (31.0-36.0); MEAN CORPUSCULAR VOLUME 92 fL (80-96); MONOCYTES # (AUTO) 1.4 /CMM (0.1-1.30); MONOCYTES % (AUTO) 18.7 % (2.0-12.0); NEUTROPHILS # (AUTO) 4.1 /CMM (1.8-8.9); PLATELET COUNT (AUTO) 121 /CMM (150-450); RDW COEFFICIENT OF VARIATION 15.9 (11.5-15.0); RED BLOOD CELL COUNT(AUTO) 4.56 MIL/uL (4.5-6.0); WHITE BLOOD COUNT (AUTO) 7.3 K/uL (4.3-11.0)
[2016-11-09 07:06] LABS: CALCIUM, SERUM 9.2 mg/dL (8.5-10.1); CREATININE 1.1 mg/dL (0.6-1.3); MAGNESIUM 1.8 mg/dL (1.8-2.4); POTASSIUM 4.4 mmol/L (3.5-5.1)
--- NOTE | 2016-11-09 07:30 | NUR ---
MS RN NOTES RECEIVED REPORT WITH PATIENT A/OX1. PATIENT IS RESTING COMFORTABLY IN BED. NO S/S OF DISTRESS OR SOB NOTED. BREATHING IS EVEN AND UNLABORED. IV IS PATENT AND INTACT. CAREGIVER IS AT BEDSIDE. CALL LIGHT WITHIN REACH. BED IS IN THE LOWEST, LOCKED POSITION. WILL CONTINUE TO MONITOR THROUGHOUT SHIFT.
[2016-11-09 08:00] VITALS: BP 110/73
[2016-11-09 08:55] LABS: EOSINOPHILS % (MANUAL) 1 % (0-4); LYMPHOCYTES % (MANUAL) 24 % (16-48); MONOCYTES % (MANUAL) 20 % (0-11.0); NEUTROPHILS % (MANUAL) 55 (42-76)
[2016-11-09] MEDS: ARIPIPRAZOLE 5 MG TABLET PO SCH (09:02)
[2016-11-09] MEDS: PANTOPRAZOLE 40 MG TABLET.DR PO SCH (09:03)
[2016-11-09] MEDS: FLUOXETINE HCL 20 MG CAPSULE PO SCH (09:03)
[2016-11-09] MEDS: DOCUSATE SODIUM 100 MG CAPSULE PO SCH ×2 (09:03→16:32)
[2016-11-09] MEDS: LEVOTHYROXINE SODIUM 88 MCG TABLET PO SCH (09:03)
[2016-11-09] MEDS: OXYBUTYNIN CHLORIDE ER 5 MG TAB PO SCH (09:03)
[2016-11-09] MEDS: ASPIRIN EC 81 MG TABLET.DR PO SCH (09:03)
[2016-11-09] MEDS: LEVETIRACETAM (250 MG) 250 MG TABLET PO SCH ×2 (09:03→16:32)
[2016-11-09] MEDS: VALPROIC ACID 250 MG/5 ML UDC GT SCH ×3 (09:04→16:31)
[2016-11-09] MEDS: clonazePAM 1 MG TABLET PO SCH ×3 (09:04→16:32)
[2016-11-09] MEDS: LACTOBACILLUS RHAMNOSUS GG 1 EACH CAP.SPRINK PO SCH ×2 (09:04→16:32)
[2016-11-09 16:00] VITALS: BP_SYST 150; BP_SYST 99; BP_DIAS 72; BP_DIAS 78
--- NOTE | 2016-11-09 18:46 | NUR ---
MS RN NOTES VANCO TROUGH AT 23. 1900 DOSE HELD.
--- NOTE | 2016-11-09 18:46 | NUR ---
MS RN NOTES PATIENT IS A/OX1. RESTING COMFORTABLY IN BED. CAREGIVER IS AT THE BEDSIDE. ENCOURAGED USE OF INCENTIVE SPIROMETER. NO S/S OF DISTRESS OR SOB NOTED. PATIENT ON 3L NASAL CANNULA. IV IS PATENT AND INTACT. BED IS IN THE LOWEST, LOCKED POSITION. CALL LIGHT IS WITHIN REACH. WILL ENDORSE CARE TO PM SHIFT.
--- NOTE | 2016-11-09 19:30 | NUR ---
RN NOTE; RECEIVED PT IN BED LETHARGIC . BREATHING EVENLY. NO SOB. NAD. NO S/S OF PAIN OR DISCOMFORT NOTED. PSYCHOLOGIST INDUSTRIAL ORGANIZATIONAL AT THE BED SIDE. IVF HYDRATION RUNNING . IV SITE INTACT. CALL LIGHT WITHIN REACH. WILL CONT TO MONITOR.
[2016-11-09 20:00] VITALS: BP 116/75
[2016-11-09 20:55] VITALS: BP 116/75
[2016-11-09] MEDS: FINASTERIDE (5 MG) 5 MG TABLET PO SCH (21:02)
[2016-11-09] MEDS: DOXAZOSIN MESYLATE (4 MG) 4 MG TABLET PO SCH (21:03)
[2016-11-10] MEDS: MEROPENEM 1 G in IV NS 0.9% 100 ML IV SCH (04:42)
[2016-11-10] MEDS: IV 1/2NS 1000 ML 1,000 ML IV PRN (04:45)
--- NOTE | 2016-11-10 06:25 | NUR ---
RN NOTE; PT IN BED MORE AWAKE AND RESPONSIVE NOW. BREATHING EVENLY. NO SOB. NAD. ON O2 AT 3LPM VIA NC GAYLE WELL. NEEDS ATTENDED. CLEANED AND DRIED. BED LOW LOCKED. SRX2, CALL LIGHT WITHIN REACH. WILL CONT TO MONITOR AND WILL ENDORSE TO AM SHIFT FOR BUDDY.
[2016-11-10 07:00] LABS: BASOPHILS % (AUTO) 0.4 % (0.0-2.0); EOSINOPHILS # (AUTO) 0.1 /CMM (0.0-0.7); EOSINOPHILS % (AUTO) 1.1 % (0.0-6.0); HEMATOCRIT 37 % (39-51); HEMOGLOBIN 12.6 g/dL (13.5-17.5); LYMPHOCYTES # (AUTO) 1.6 /CMM (0.8-4.8); LYMPHOCYTES % (AUTO) 23.7 % (20.0-44.0); MEAN CORPUSCULAR HEMOGLOBIN 31 PG (26.0-33.0); MEAN CORPUSCULAR HGB CONC 34 g/dl (31.0-36.0); MEAN CORPUSCULAR VOLUME 91 fL (80-96); MONOCYTES # (AUTO) 1.1 /CMM (0.1-1.30); MONOCYTES % (AUTO) 16.2 % (2.0-12.0); NEUTROPHILS % (AUTO) 58.6 % (43.0-81.0); PLATELET COUNT (AUTO) 132 /CMM (150-450); RDW COEFFICIENT OF VARIATION 16.3 (11.5-15.0); RED BLOOD CELL COUNT(AUTO) 4.08 MIL/uL (4.5-6.0); WHITE BLOOD COUNT (AUTO) 6.8 K/uL (4.3-11.0)
--- NOTE | 2016-11-10 07:00 | NUR ---
MS RN RECEIVED ON BED, AWAKE,ALERT,ORIENTED X1,NOT IN NAY FORM OF DISTRESS, RESPIRATIONS EVEN AND UNLABORED,NO SOB NOTED. LUNGS ARE DIMINISHED, ABDOMEN SOFT,POSITIVE BOWEL SOUNDS, DENIES PAIN AT THIS TIME, WILL MONITOR PATIENT.
[2016-11-10 08:00] VITALS: BP 124/93
--- NOTE | 2016-11-10 09:10 | NUR ---
MS KEBEDE BREAKFAST SERVED, DUE MEDS GIVEN,TOLERATED WELL.
[2016-11-10 09:35] LABS: EOSINOPHILS % (MANUAL) 1 % (0-4); LYMPHOCYTES % (MANUAL) 23 % (16-48); MONOCYTES % (MANUAL) 19 % (0-11.0); NEUTROPHILS % (MANUAL) 57 (42-76)
--- NOTE | 2016-11-10 09:55 | NUR ---
MS RN W2AS SEEN BY CAROLINE OLIVEROS, WILL RECOMMEND PUREE DIET AT THIS TIME.
[2016-11-10] MEDS: LEVETIRACETAM (250 MG) 250 MG TABLET PO SCH ×2 (10:34→18:08)
[2016-11-10] MEDS: ARIPIPRAZOLE 5 MG TABLET PO SCH (10:35)
[2016-11-10] MEDS: ASPIRIN EC 81 MG TABLET.DR PO SCH (10:36)
[2016-11-10] MEDS: FLUOXETINE HCL 20 MG CAPSULE PO SCH (10:36)
[2016-11-10] MEDS: LACTOBACILLUS RHAMNOSUS GG 1 EACH CAP.SPRINK PO SCH ×2 (10:36→18:08)
[2016-11-10] MEDS: PANTOPRAZOLE 40 MG TABLET.DR PO SCH (10:36)
[2016-11-10] MEDS: LEVOTHYROXINE SODIUM 88 MCG TABLET PO SCH (10:36)
[2016-11-10] MEDS: OXYBUTYNIN CHLORIDE ER 5 MG TAB PO SCH (10:37)
[2016-11-10] MEDS: DOCUSATE SODIUM 100 MG CAPSULE PO SCH ×2 (10:43→18:09)
[2016-11-10] MEDS: clonazePAM 1 MG TABLET PO SCH ×3 (10:44→18:08)
[2016-11-10] MEDS: VALPROIC ACID 250 MG/5 ML UDC GT SCH ×3 (10:44→18:08)
[2016-11-10] MEDS ORDERED: VANCOMYCIN 1 GM in IV D5W 250 ML IV SCH (11:00)
--- NOTE | 2016-11-10 13:00 | NUR ---
MS RN PO MEDS HELD AT THIS TIME ,PATIENT IS SO SLEEPY.
[2016-11-10 16:00] VITALS: BP 102/72
--- NOTE | 2016-11-10 17:03 | NUR ---
MS RN ON BED, NO DISTRESS NOTED.
--- NOTE | 2016-11-10 18:59 | NUR ---
MS RN PATIENT ON BED W/ RADIO MAINTAINER, NO DISTRESS NOTED.
--- NOTE | 2016-11-10 19:32 | NUR ---
RN NOTE; RECEIVED PT IN BED W/ SITTER AT THE BED SIDE. PT AWAKE AND ALERT AND RESPONSIVE. BREATHING EVENLY. NO SOB. NAD. NO S/S OR C/O PAIN OR DISCOMFORT. NO EPISODE OF COUGH NOTED. BED LOW LOCKED. CALL LIGHT WITHIN REACH. WILL CONT TO MONITOR.
[2016-11-10 20:00] VITALS: BP 102/64
[2016-11-10] MEDS: DOXAZOSIN MESYLATE (4 MG) 4 MG TABLET PO SCH (21:59)
[2016-11-10] MEDS: FINASTERIDE (5 MG) 5 MG TABLET PO SCH (21:59)
--- NOTE | 2016-11-11 06:37 | NUR ---
RN NOTE; PT IN BED AWAKE AND RESPONSIVE.BREATHING EVENLY. NO SOB. NAD. O2 AT 3LPM VIA NC GAYLE WELL/ NO COUGH. PUREED DIET GAYLE WELL. NEEDS ATTENDED. CLEANED AND DRIED. REPOSITIONED ROUTINELY. CALL LIGHT WITHIN REACH.WILL CONT TO MONITOR AND WILL ENDORSE TO AM SHIFT FOR BUDDY.
--- NOTE | 2016-11-11 07:30 | NUR ---
RECEIVED PT. ALERT AND ORIENTEDX1.HOME CAREGIVER PRESENT.NO COMPLAINTS OFFERED.FLAT AFFECT,MED COMPLIANT WITH CAREGIVERS HELP.IV INFUSING.
[2016-11-11 07:55] LABS: CALCIUM, SERUM 8.9 mg/dL (8.5-10.1); CREATININE 0.9 mg/dL (0.6-1.3); POTASSIUM 3.8 mmol/L (3.5-5.1)
[2016-11-11 08:00] VITALS: BP 131/71
[2016-11-11] MEDS: ARIPIPRAZOLE 5 MG TABLET PO SCH (08:40)
[2016-11-11] MEDS: FLUOXETINE HCL 20 MG CAPSULE PO SCH (08:41)
[2016-11-11] MEDS: VALPROIC ACID 250 MG/5 ML UDC GT SCH ×3 (08:41→17:57)
[2016-11-11] MEDS: LEVOTHYROXINE SODIUM 88 MCG TABLET PO SCH (08:42)
[2016-11-11] MEDS: LEVETIRACETAM (250 MG) 250 MG TABLET PO SCH ×2 (08:42→17:57)
[2016-11-11] MEDS: ASPIRIN EC 81 MG TABLET.DR PO SCH (08:42)
[2016-11-11] MEDS: FINASTERIDE (5 MG) 5 MG TABLET PO SCH (08:43)
[2016-11-11] MEDS: LACTOBACILLUS RHAMNOSUS GG 1 EACH CAP.SPRINK PO SCH ×2 (08:43→17:57)
[2016-11-11] MEDS: PANTOPRAZOLE 40 MG TABLET.DR PO SCH (08:43)
[2016-11-11] MEDS: DOCUSATE SODIUM 100 MG CAPSULE PO SCH ×2 (08:43→17:57)
[2016-11-11] MEDS: OXYBUTYNIN CHLORIDE ER 5 MG TAB PO SCH (08:44)
[2016-11-11] MEDS: clonazePAM 1 MG TABLET PO SCH ×3 (09:00→17:00)
[2016-11-11] MEDS ORDERED: LORAZEPAM INJ 2 MG/ML VIAL IVP PRN (11:00)
--- NOTE | 2016-11-11 11:30 | NUR ---
DR. COLES IN TO SEE PT.
[2016-11-11 16:00] VITALS: BP 105/71
--- NOTE | 2016-11-11 17:30 | NUR ---
BUDDY HELD X2 DUE TO DROWSINESS.
--- NOTE | 2016-11-11 18:30 | NUR ---
CT OF HEAD DONE WELL SWALLOW EVAL.GYALE. WELL.
--- NOTE | 2016-11-11 19:30 | NUR ---
MS RN OPENING NOTES: PATIENT IN BED, AOX1, ON O2 AT 3 LPM VIA NC, BREATHING EVEN AND UNLABORED, BREATH SOUNDS CLEAR, DIMINISHED AT BASES. MAINTAINED HOB ELEVATED. PIV OVER LEFT WRIST G 22 INTACT AND INFUSING WELL WITH 1/2 NS RUNNING AT 50 ML/HR. PROVIDED FOR COMFORT AND SAFETY. BED IN LOWEST AND LOCKED POSITION AND SIDERAILS UP X3. BED ALARMS ON. WILL CONT TO MONITOR.
[2016-11-11 20:00] VITALS: BP 105/72
[2016-11-11] MEDS: AZTREONAM 1 G in IV NS 0.9% 100 ML IV SCH (21:43)
[2016-11-11] MEDS: DOXAZOSIN MESYLATE (4 MG) 4 MG TABLET PO SCH (21:43)
[2016-11-11] MEDS: IV 1/2NS 1000 ML 1,000 ML IV PRN (21:45)
[2016-11-11] MEDS ORDERED: SECONDARY IV SET 1 EA INFUS.SET MC ONE (21:46)
--- NOTE | 2016-11-12 06:26 | NUR ---
MS RN CLOSING NOTES: PATIENT IN BED, AOX1, ON O2 AT 3 LPM VIA NC, BREATHING EVEN AND UNLABORED. PIV OVER LEFT WRIST G22 INTACT AND INFUSING WELL WITH 1/2 NS RUNNING AT 50 ML/HR. NO ACUTE CHANGE IN CONDITION NOTED THROUGH SHIFT. PROVIDED FOR COMFORT AND SAFETY. DUE MEDS GIVEN. MORNING CARE DONE. BED IN LOWEST AND LOCKED POSITION, SIDERAILS UP X3, CAREGIVER AT BEDSIDE. WILL ENDORSE TO AM RN FOR BUDDY.
[2016-11-12] MEDS: PANTOPRAZOLE 40 MG TABLET.DR PO SCH (06:33)
[2016-11-12] MEDS: LEVOTHYROXINE SODIUM 88 MCG TABLET PO SCH (06:33)
--- NOTE | 2016-11-12 07:10 | NUR ---
RN INITIAL NOTES: REC'D PATIENT ASLEEP ON BED, NOT IN ANY DISTRESS, EASILY AROUSABLE, AOX1. ON O2 AT 3 LPM VIA NC, NO SOB NOTED. HOB ELEVATED. HAS LEFT WRIST G 22 PATENT & INTACT WITH 1/2 NS RUNNING AT 50 ML/HR INFUSING WELL. PROVIDED COMFORT AND SAFETY MEASURES. BED IN LOWEST AND LOCKED POSITION. CAREGIVER AT BEDSIDE. WILL CONT TO MONITOR.
[2016-11-12 07:31] LABS: CREATININE 0.9 mg/dL (0.6-1.3); MAGNESIUM 1.6 mg/dL (1.8-2.4); PHOSPHORUS 3.9 mg/dL (2.5-4.9); POTASSIUM 3.9 mmol/L (3.5-5.1)
[2016-11-12 07:36] LABS: WHITE BLOOD COUNT (AUTO) 7.7 K/uL (4.3-11.0)
[2016-11-12 07:37] LABS: BASOPHILS # (AUTO) 0.1 /CMM (0.0-0.2); BASOPHILS % (AUTO) 0.7 % (0.0-2.0); EOSINOPHILS # (AUTO) 0.2 /CMM (0.0-0.7); EOSINOPHILS % (AUTO) 3.1 % (0.0-6.0); HEMATOCRIT 39 % (39-51); LYMPHOCYTES # (AUTO) 2.2 /CMM (0.8-4.8); LYMPHOCYTES % (AUTO) 28.7 % (20.0-44.0); MEAN CORPUSCULAR HEMOGLOBIN 30 PG (26.0-33.0); MEAN CORPUSCULAR HGB CONC 33 g/dl (31.0-36.0); MEAN CORPUSCULAR VOLUME 91 fL (80-96); MONOCYTES # (AUTO) 0.9 /CMM (0.1-1.30); MONOCYTES % (AUTO) 12.2 % (2.0-12.0); NEUTROPHILS # (AUTO) 4.2 /CMM (1.8-8.9); NEUTROPHILS % (AUTO) 55.3 % (43.0-81.0); PLATELET COUNT (AUTO) 187 /CMM (150-450); RDW COEFFICIENT OF VARIATION 16.2 (11.5-15.0); RED BLOOD CELL COUNT(AUTO) 4.28 MIL/uL (4.5-6.0)
[2016-11-12 08:00] VITALS: BP 121/78
[2016-11-12] MEDS: VALPROIC ACID 250 MG/5 ML UDC GT SCH ×3 (08:54→17:50)
[2016-11-12] MEDS: ARIPIPRAZOLE 5 MG TABLET PO SCH (08:54)
[2016-11-12] MEDS: LEVETIRACETAM (250 MG) 250 MG TABLET PO SCH ×2 (08:55→17:50)
[2016-11-12] MEDS: DOCUSATE SODIUM 100 MG CAPSULE PO SCH ×2 (08:55→17:51)
[2016-11-12] MEDS: ASPIRIN EC 81 MG TABLET.DR PO SCH (08:55)
[2016-11-12] MEDS: LACTOBACILLUS RHAMNOSUS GG 1 EACH CAP.SPRINK PO SCH ×2 (08:55→17:51)
[2016-11-12] MEDS: FLUOXETINE HCL 20 MG CAPSULE PO SCH (08:55)
[2016-11-12] MEDS: clonazePAM 1 MG TABLET PO SCH ×3 (09:02→17:50)
[2016-11-12] MEDS: AZTREONAM 1 G in IV NS 0.9% 100 ML IV SCH (09:02)
[2016-11-12] MEDS: OXYBUTYNIN CHLORIDE ER 5 MG TAB PO SCH (09:02)
[2016-11-12] MEDS ORDERED: VALPROATE 1,000 MG in IV D5W 100 ML IV STA (10:12)
[2016-11-12] MEDS ORDERED: SECONDARY IV SET 1 EA INFUS.SET MC ONE (11:16)
[2016-11-12] MEDS ORDERED: Magnesium 1GM/D5W 100ML PREMIX 100 ML IV SCH (11:30)
[2016-11-12 16:00] VITALS: BP 111/65
[2016-11-12] MEDS ORDERED: DIVA500T7 PO (16:00)
[2016-11-12] MEDS ORDERED: AZTR1VIA2 IM (16:00)
--- NOTE | 2016-11-12 19:30 | NUR ---
MS RN OPENING NOTES: PT IN BED, AOX1, ON O2 AT 3 LPM VIA NC, BREATHING EVEN AND UNLABORED. PIV OVER L WRIST G22 INTACT AND PATENT, INFUSING WELL WITH 1/2 NS RUNNING AT 50 ML/HR. PATIENT IS FOR DISCHARGE TO HOME WITH HOME HEALTH, WITH O2 AT HOME. WILL CALL CM TO FF UP TRANSPORTATION.
[2016-11-12 20:00] VITALS: BP 106/69
--- NOTE | 2016-11-12 21:15 | NUR ---
RN NOTES: DISCHARGE INSTRUCTIONS GIVEN TO PATIENT'S CAREGIVER,
--- NOTE | 2016-11-12 21:40 | NUR ---
MS CIGARETTE EXAMINER NOTES: PATIENT WAS DISCHARGED FROM [facility] IN STABLE CONDITION, PICKED UP BY [facility], TO HOME WITH PRIVATE CAREGIVER ACCOMPANYING PATIENT. VS TAKEN: TEMP: 98.1, HR:68, BP: 107/74, O2 SAT: 93% ON O2 AT 3 LPM VIA NC. STUART TANNER ALREADY ARRANGED FOR HOME HEALTH ([facility]) AND HOME OXYGEN.
== END 2016-11-12 21:30 | disposition home health service (06) | DRG 177 ==
LOC: ER 20:37 → TELE 22:18 → MED 11-04 10:20
PROVIDERS: ADMIT Internal Medicine; ATTEND Internal Medicine
DX: J69.0 Pneumonitis due to inhalation of food and vomit (principal); N17.0 Acute kidney failure with tubular necrosis; G93.41 Metabolic encephalopathy; J96.01 Acute respiratory failure with hypoxia; N39.0 Urinary tract infection, site not specified; F84.0 Autistic disorder; J98.11 Atelectasis; I10 Essential (primary) hypertension; F25.9 Schizoaffective disorder, unspecified; E78.5 Hyperlipidemia, unspecified; N40.1 Benign prostatic hyperplasia with lower urinary tract symptoms; E03.9 Hypothyroidism, unspecified; J06.9 Acute upper respiratory infection, unspecified; F32.9 Major depressive disorder, single episode, unspecified; E83.42 Hypomagnesemia; G40.909 Epilepsy, unspecified, not intractable, without status epilepticus; K21.9 Gastro-esophageal reflux disease without esophagitis; Z88.0 Allergy status to penicillin; Z87.440 Personal history of urinary (tract) infections; B96.89 Other specified bacterial agents as the cause of diseases classified elsewhere; I70.90 Unspecified atherosclerosis
CPT/HCPCS: 31720; 36415; 36600; 70450-TC; 71010-TC; 80048-TC; 80061-TC; 80076-TC; 80164-TC; 80202-TC; 81000-TC; 82803-TC; 83605-TC; 83735-TC; 83880; 84100-TC; 84484-TC; 85025-TC; 85378-TC; 85730-TC; 87040-TC; 87081-TC; 87086-TC; 92526; 92611-TC; 93970-TC; 94668-TC; 94799-TC; 97001-TC; A4216; A4606; J0456; J0696; J1940; J1956; J2185; J2405; J3370; J3475; J3490; J7030; J7050; J7060; Q9967; Z7610